=== PATIENT | female | born 1970 | race Caucasian/White ===

== ENCOUNTER 2022-12-29 08:20 | Day surgery (SDC) | payer OTHER, SELFPAY ==
[2022-12-29 09:00] VITALS: BMI 26.5
[2022-12-29 09:08] VITALS: BP 107/73; PULSE 117; RESP 16; TEMP 36.7; O2SAT 98
[2022-12-29 09:15] VITALS: PULSE 100
[2022-12-29] MEDS: Lactated Ringers 1,000 ML 50 ML IVCONT (09:21)
--- NOTE | 2022-12-29 09:45 | HO.ANESPROP2 ---
HPI - Anesthesia Eval Consult details Narrative: 52 yo female patient for colonoscopy [facility] Past Medical History Medical History Anxiety Elevated cholesterol Family History Family history of problems with anesthesia: No Surgical History Surgical History H/O colonoscopy History of surgical removal of pilonidal cyst Previous section History of Problems with Anesthesia: No Social History Social History Patient Tobacco Use Status: Never used Tobacco Use of substances other than those prescribed or required for medical reasons: No Are you DNR?: No Advance Directives: No Advance Directives Information Provided: Yes Recently lost weight without trying: No How much weight loss: 2-13 pounds Nutrition Risks: No Nutritional Risk Meds Allergies Allergy/AdvReac Type Severity Reaction Status Date / Time No Known Allergies Allergy Verified 12/29/22 08:57 Active Medications: Current Medications Lactated Ringer's (Lr) 1,000 mls @ 50 mls/hr IVCONT .Q20H WILL Last Admin: 12/29/22 09:21 Dose: 50 mls/hr Home Medications Medication Instructions Recorded Confirmed Last Taken Type sertraline 100 mg tablet 1 tab PO DAILY 12/28/22 12/28/22 Unknown History Exam Exam Date and Time: December 29, 2022 0945 Height,Weight and Vital Signs: Height 5 ft 2 in Weight 65.771 kg Last Vital Signs Temp 98.0 F 12/29/22 09:08 Pulse 100 12/29/22 09:15 Resp 16 12/29/22 09:08 BP 107/73 12/29/22 09:08 Pulse Ox 98 12/29/22 09:08 O2 Del Method 12/29/22 09:08 Airway Mallampati Class: II TM Dist: >3cm Neck ROM: Full Loose/Missing/Broken Teeth: No (Cap top left back intact. Denies broken, loose, missing teeth) Heart: RRR Lungs: CTAB Assessment and Plan Assessment Anesthesia Assessment: Anesthesia Plan Discussed and Chart Reviewed Final Anesthetic Review Family History of Problems with Anesthesia: No History of Problems with Anesthesia: No NPO: Yes ASA Class: II Final Preanesthetic Review: No Changes in Pt Med Stat, Meds/Allgs Chart Reviewed, Consent Obtained/Reviewed and Anes Risks/Benef Reviewed Patient Risk: Low Procedure Risk: Low Assessment/Block/Sedation in SS: Assess/Block/Sedation-SS Anesthetic Plan Anesthetic Plan: MAC: Disposition: Standard PACU
--- NOTE | 2022-12-29 09:51 | MHC.SHP ---
Pre-Procedural Eval Section A Date of Service: 12/29/22 The patient is an INPATIENT: No Changes since office visit: No Cold of Flu in the past 2 weeks, No New Medical Problems, No Changes in Medication and No Patient answered all questions The History & Physical has been completed within 30 days and I have reviewed it.: Yes Section B Chief Complaint: screening Allergies: Allergies Allergy/AdvReac Type Severity Reaction Status Date / Time No Known Allergies Allergy Verified 12/29/22 08:57 Plan I have reviewed the history and physical and performed a pertinent physical examination on my patient. No changes have occurred unless specified. Time Spent With Patient Time: Total time managing care of this patient today ____ minutes.
--- NOTE | 2022-12-29 10:17 | PM.OP ---
Brief Operative Note Date of Service: 12/29/22 Pre-op diagnosis: screening Post-op diagnosis: same Procedure: colonoscopy Surgeon: Harinder Rodriguez Anesthesia: MAC Was an [employer] used for this Procedure?: No Estimated blood loss (mL): 2 Pathology: other Condition: stable Disposition: PACU
[2022-12-29 10:20] VITALS: BP 98/51; PULSE 75; RESP 18; TEMP 36.2; O2SAT 98
[2022-12-29 10:35] VITALS: BP 106/45; PULSE 71; RESP 18; TEMP 36.2; O2SAT 97
--- NOTE | 2022-12-29 10:36 | OP_ITS ---
SURGEON: Harinder Rodriguez MD INDICATIONS: Colon cancer screening and prior history of adenomatous colon polyps. PREOPERATIVE DIAGNOSIS: POSTOPERATIVE DIAGNOSIS: PROCEDURE PERFORMED: Colonoscopy to the terminal ileum, snare polypectomy. ESTIMATED BLOOD LOSS: COMPLICATIONS: ANESTHESIA: Monitored anesthesia care. ASSISTANTS: SPECIMENS: PROCEDURE DESCRIPTION: History and physical performed. The procedure was performed on 12/29/2022. The risks and benefits of the procedure were explained to the patient. Informed consent was obtained. The patient was placed in the left lateral decubitus position. A digital rectal exam was performed and was found to be normal. The Olympus pediatric video colonoscope was introduced into the rectum and advanced to the cecum without difficulty. The cecum was identified by transillumination, palpation, and identification of ileocecal valve. Examination was performed. The scope was removed. She tolerated the procedure well and was returned to the recovery in stable condition. FINDINGS: The terminal ileum was examined and appeared normal. The visualized colonic mucosa was normal. The quality of the prep was excellent. There was minimal sigmoid diverticulosis. At 20 cm from the anal verge, there was a 6 mm polyp, which was removed with a snare and recovered via suction. No other polyps were identified. Retroflexed examination showed moderately large internal hemorrhoids. IMPRESSION: Colon polyp. RECOMMENDATION: Follow up the biopsy results. MD RAISA Ramirez/MALCOLM / [id number]
== END 2022-12-29 10:55 | disposition home or self-care (01) ==
PROVIDERS: PCP Nurse Practitioner Family; Visit Provider Internal Medicine Gastroenterology
PROC: 0DJD8ZZ Inspection of Lower Intestinal Tract, Via Natural or Artificial Opening Endoscopic (ICD-10-PCS; CPT 45378; principal; 2022-12-29 09:40)
DX: Z12.11 Encounter for screening for malignant neoplasm of colon (principal); Z86.010 Personal history of colon polyps; K63.5 Polyp of colon; K57.30 Diverticulosis of large intestine without perforation or abscess without bleeding; K64.8 Other hemorrhoids; F41.1 Generalized anxiety disorder; E78.00 Pure hypercholesterolemia, unspecified; Z79.899 Other long term (current) drug therapy
CPT/HCPCS: 45385; 88305; J2250